=== PATIENT | male | born 1935 | race Caucasian/White ===

== ENCOUNTER 2018-03-07 10:41 | Emergency (ER) | payer MEDICARE ==
[2018-03-07 10:55] VITALS: RESP 18
[2018-03-07] MEDS ORDERED: LIDOCAINE 1% INJ 10MG/ML (20 ML MDV) SQ STA (11:56)
[2018-03-07] MEDS ORDERED: PENICILLIN G BENZATHINE 1,200,000 UNIT/2 ML SYRINGE IM STA (12:29)
--- NOTE | 2018-03-07 12:36 | ED ---
General Adult HPI - General Chief complaint: Skin/Abscess/Foreign Body Stated complaint: Insect Bite behind Rt ear Time Seen by Provider: 03/07/18 11:14 Source: patient, RN notes reviewed Mode of arrival: ambulatory Limitations: no limitations - History of Present Illness Initial comments: Patient's an 82-year-old male presented to the emergency room today with chief complaint of an abscess located behind the right ear. He does admit that started approximately a week ago. He states he did see the family doctor this past Saturday who did try to drain in the office. Some drainage came out. Since last few days he has had some drainage in the back of the family doctor was told it was worse as compared to the emergency room. Patient states he has been on antibiotics of Bactrim has been taking this. Admits to The pain locally. Does not drink. Denies any other complaints or symptoms. Patient denies any recent fever, chills, shortness of breath, chest pain, back pain, abdominal pain, nausea or vomiting, headaches or visual changes, or any other complaints. - Related Data Home Medications Medication Instructions Recorded Confirmed Amitriptyline HCl [Elavil] 20 mg PO BID 03/07/18 03/07/18 Bepreve Eye Drops 1 drop BOTH EYES DAILY 03/07/18 03/07/18 Edoxaban Tosylate [Savaysa] 30 mg PO HS 03/07/18 03/07/18 Isosorbide Mononitrate ER [Imdur] 30 mg PO DAILY 03/07/18 03/07/18 Metoprolol Succinate (ER) [Toprol 50 mg PO BID 03/07/18 03/07/18 Xl] Simvastatin [Zocor] 20 mg PO HS 03/07/18 03/07/18 Spironolactone-Hctz 25-25Mg 0.5 tab PO Q48H 03/07/18 03/07/18 [Aldactazide 25-25Mg] Sulfamethox-Tmp 800-160Mg [Bactrim 1 tab PO Q12HR 03/07/18 03/07/18 DS 800-160 mg] hydrALAZINE HCL [Apresoline] 50 mg PO BID 03/07/18 03/07/18 Allergies Allergy/AdvReac Type Severity Reaction Status Date / Time No Known Allergies Allergy Verified 03/07/18 11:13 Review of Systems ROS Statement: Those systems with pertinent positive or pertinent negative responses have been documented in the HPI. ROS Other: All systems not noted in ROS Statement are negative. Past Medical History Past Medical History: Coronary Artery Disease (CAD), Hyperlipidemia, Hypertension, Myocardial Infarction ([place]) Additional Past Medical History / Comment(s): cataracts removed History of Any Multi-Drug Resistant Organisms: None Reported Past Surgical History: Heart Catheterization Additional Past Surgical History / Comment(s): defib, cat removed with lens implant Past Psychological History: No Psychological Hx Reported Smoking Status: Never smoker Past Alcohol Use History: None Reported Past Drug Use History: None Reported General Exam - General Exam Comments Initial Comments: General: The patient is awake and alert, in no distress, and does not appear acutely ill. Eye: Pupils are equal, round and reactive to light, extra-ocular movements are intact. No nystagmus. There is normal conjunctiva bilaterally. No signs of icterus. Ears, nose, mouth and throat: There are moist mucous membranes and no oral lesions. Neck: The neck is supple, there is no tenderness or JVD. Musculoskeletal: Normal ROM, no tenderness. Strength 5/5. Sensation intact. Pulses equal bilaterally 2+. Neurological: A&O x 3. CN II-XII intact, There are no obvious motor or sensory deficits. Coordination appears grossly intact. Speech is normal. Skin: Abscess behind the right year measures approximately 2 cm across. Firm on induration. Psychiatric: Cooperative, appropriate mood & affect, normal judgment. Limitations: no limitations Course Vital Signs 03/07/18 10:50 Temperature 97.7 F Pulse Rate 79 Respiratory 18 Rate Blood Pressure 106/67 O2 Sat by Pulse 97 Oximetry Procedures - Procedures Initial comment: Procedure: Incision and drainage The skin overlying the abscess was prepped with Betadine, and anesthetized with 1% lidocaine without epinephrine. A #11 scalpel was then used to incise the abscess. Some purulent material was then extracted from the lesion. Wound culture obtained. Gauze dressing placed on top, The patient tolerated the procedure well. Medical Decision Making - Medical Decision Making Patient was seen by attending physician Dr. Wolfe. At this time patient will be discharged continued on Bactrim. The abscess was opened and drained here in the emergency room. Small bowel drainage. Options of admission were discussed. Patient states he would rather follow up outpatient. At this time advised continue Bactrim and asked culture is pending. Advised return if symptoms increase worsen. Advised following up next week. Patient states understanding. Disposition Clinical Impression: Abscess Disposition: HOME SELF-CARE Condition: Good Instructions: Abscess (ED) Additional Instructions: Please continue antibiotics as previously prescribed. Please use warm compresses to the area at least 4 times daily for 20 minutes at a time. Please return to emergency room if there is increased pain, swelling, redness, or fever or chills. Is patient prescribed a controlled substance at d/c from ED?: No Referrals: Aleksandra Machado MD [Primary Care Provider] - 1-2 days Time of Disposition: 12:35
[2018-03-07 13:10] VITALS: BP 115/70; PULSE 72; TEMP 98
== END 2018-03-07 13:10 | disposition home or self-care (01) ==
LOC: EC 10:41
DX: H60.01 Abscess of right external ear (principal); I25.10 Atherosclerotic heart disease of native coronary artery without angina pectoris; E78.5 Hyperlipidemia, unspecified; I10 Essential (primary) hypertension; I25.2 Old myocardial infarction; Z95.818 Presence of other cardiac implants and grafts; Z95.810 Presence of automatic (implantable) cardiac defibrillator; Z79.01 Long term (current) use of anticoagulants; Z79.899 Other long term (current) drug therapy; W57.XXXA Bitten or stung by nonvenomous insect and other nonvenomous arthropods, initial encounter
CPT/HCPCS: 87070; 87205; 87077; 87186; 99283; 10060; 96372; J0561; J2001

== ENCOUNTER 2018-03-17 14:32 | Inpatient (IN) | payer MEDICARE ==
[2018-03-17 15:43] LABS: Appearance,Urine Clear (Clear); Bilirubin,Urine Negative (Negative); Blood,Urine Negative (Negative); Color,Urine Dark Yellow; Glucose,Urine (UA) Negative (Negative); Ketones,Urine Negative (Negative); Leukocyte Esterase,Urine Negative (Negative); Nitrite,Urine Negative (Negative); PH, Urine 5.5 (5.0-8.0); Protein,Urine Trace (Negative); Specific Gravity,Urine 1.023 (1.001-1.035); Urobilinogen,Urine <2.0 mg/dL (<2.0)
[2018-03-17 15:59] LABS: Basophils % (A) 0 %; Eosinophils # (A) 0.2 k/uL (0-0.7); Eosinophils % (A) 2 %; HCT 44.2 % (39.0-53.0); HGB 14.8 gm/dL (13.0-17.5); Lymphocytes # (A) 0.7 k/uL (1.0-4.8); Lymphocytes % (A) 8 %; MCH 29.9 pg (25.0-35.0); MCHC 33.4 g/dL (31.0-37.0); MCV 89.5 fL (80.0-100.0); Mean Platelet Volume 7.9; Monocytes # (A) 0.7 k/uL (0-1.0); Monocytes % (A) 8 %; Neutrophils % (A) 80 %; Platelet Count 188 k/uL (150-450); RBC 4.94 m/uL (4.30-5.90); RDW 13.4 % (11.5-15.5); WBC 8.8 k/uL (3.8-10.6)
[2018-03-17 16:06] LABS: Albumin 3.8 g/dL (3.5-5.0); Calcium 8.9 mg/dL (8.4-10.2); Potassium 5.2 mmol/L (3.5-5.1); Total Bilirubin 0.6 mg/dL (0.2-1.3); Total Protein 6.6 g/dL (6.3-8.2)
[2018-03-17] MEDS ORDERED: SODIUM CHLORIDE 0.9% 500 ML IV ONE ×3 (17:09→21:14)
--- NOTE | 2018-03-17 17:14 | ED ---
General Adult HPI - General Chief complaint: Weakness Stated complaint: Weakness Time Seen by Provider: 03/17/18 17:00 Source: patient, RN notes reviewed, old records reviewed Mode of arrival: wheelchair Limitations: no limitations - History of Present Illness Initial comments: 82-year-old male presenting with generalized weakness and diarrhea. Patient states that his diarrhea has been present for the past 3-4 days. Is also had some mild nausea, no significant vomiting. He's had subjective chills with no measured fever. Patient was previously on antibiotics for an abscess behind his right ear. He stopped these antibiotics secondary to his diarrhea. He is also had some myalgias. Denies any significant abdominal pain. Denies chest pain or shortness of breath. Denies cough. - Related Data Home Medications Medication Instructions Recorded Confirmed Bepreve Eye Drops 1 drop BOTH EYES DAILY 03/07/18 03/17/18 Edoxaban Tosylate [Savaysa] 30 mg PO HS 03/07/18 03/17/18 Isosorbide Mononitrate ER [Imdur] 30 mg PO DAILY 03/07/18 03/17/18 Metoprolol Succinate (ER) [Toprol 50 mg PO BID 03/07/18 03/17/18 Xl] Simvastatin [Zocor] 20 mg PO HS 03/07/18 03/17/18 Spironolactone-Hctz 25-25Mg 0.5 tab PO DAILY 03/07/18 03/17/18 [Aldactazide 25-25Mg] hydrALAZINE HCL [Apresoline] 50 mg PO BID 03/07/18 03/17/18 Enalapril [Vasotec] 20 mg PO BID 03/17/18 03/17/18 Allergies Allergy/AdvReac Type Severity Reaction Status Date / Time No Known Allergies Allergy Verified 03/17/18 17:11 Review of Systems ROS Statement: Those systems with pertinent positive or pertinent negative responses have been documented in the HPI. ROS Other: All systems not noted in ROS Statement are negative. Past Medical History Past Medical History: Coronary Artery Disease (CAD), Hyperlipidemia, Hypertension, Myocardial Infarction ([place]) Additional Past Medical History / Comment(s): cataracts removed History of Any Multi-Drug Resistant Organisms: MRSA Date of last positivie culture/infection: 03/07/18 MDRO Source:: EAR Past Surgical History: Heart Catheterization Additional Past Surgical History / Comment(s): defib, cat removed with lens implant Past Psychological History: No Psychological Hx Reported Smoking Status: Never smoker Past Alcohol Use History: None Reported Past Drug Use History: None Reported General Exam Limitations: no limitations General appearance: alert, in no apparent distress Head exam: Present: atraumatic, normocephalic Eye exam: Present: normal appearance, PERRL ENT exam: Present: mucous membranes dry Neck exam: Present: normal inspection. Absent: tenderness, meningismus Respiratory exam: Present: normal lung sounds bilaterally. Absent: respiratory distress, wheezes Cardiovascular Exam: Present: regular rate, normal rhythm GI/Abdominal exam: Present: soft, tenderness (Very mild epigastric tenderness). Absent: distended, guarding, rebound, rigid Extremities exam: Present: normal inspection, normal capillary refill. Absent: pedal edema Neurological exam: Present: alert, oriented X3, CN II-XII intact. Absent: motor sensory deficit Psychiatric exam: Present: normal affect, normal mood Skin exam: Present: warm, dry, intact. Absent: cyanosis, diaphoretic Course Vital Signs 03/17/18 03/17/18 03/17/18 15:16 17:25 18:25 Temperature 99 F Pulse Rate 79 94 70 Respiratory 18 16 16 Rate Blood Pressure 105/67 102/68 88/50 O2 Sat by Pulse 98 97 97 Oximetry 03/17/18 19:02 Temperature 100.4 F H Pulse Rate 98 Respiratory 18 Rate Blood Pressure 99/54 O2 Sat by Pulse 96 Oximetry EKG Findings - EKG Comments: EKG Findings:: EKG: Ventricular pacemaker, rate of 89, QRS duration 120, QTC 428 Medical Decision Making - Medical Decision Making 82-year-old male with generalized weakness and diarrhea after recent antibiotics. Laboratory studies reveal normal CBC, mildly elevated lipase at 74 , creatinine 1.9 which is worse from baseline. Ultrasound is obtained for elevated lipase, this negative for gallstones or obstruction. KUB is negative for obstruction or free air. Patient given IV hydration, blood pressure remains low, he does develop low-grade temperature and emergency department at 100.4. Blood cultures are obtained and are pending given his recent MRSA infection behind his right ear. He will be admitted for further IV hydration. C. difficile toxin is pending. Case discussed with Dr. Ward, will accept admission - Lab Data Result diagrams: 03/17/18 15:40 03/17/18 15:40 Lab Results 03/17/18 03/17/18 03/17/18 Range/Units 15:26 15:40 15:40 WBC 8.8 (3.8-10.6) k/uL RBC 4.94 (4.30-5.90) m/uL Hgb 14.8 (13.0-17.5) gm/dL Hct 44.2 (39.0-53.0) % MCV 89.5 (80.0-100.0) fL MCH 29.9 (25.0-35.0) pg MCHC 33.4 (31.0-37.0) g/dL RDW 13.4 (11.5-15.5) % Plt Count 188 (150-450) k/uL Neutrophils % 80 % Lymphocytes % 8 % Monocytes % 8 % Eosinophils % 2 % Basophils % 0 % Neutrophils # 7.0 (1.3-7.7) k/uL Lymphocytes # 0.7 L (1.0-4.8) k/uL Monocytes # 0.7 (0-1.0) k/uL Eosinophils # 0.2 (0-0.7) k/uL Basophils # 0.0 (0-0.2) k/uL Sodium 132 L (137-145) mmol/L Potassium 5.2 H (3.5-5.1) mmol/L Chloride 97 L (98-107) mmol/L Carbon Dioxide 22 (22-30) mmol/L Anion Gap 13 mmol/L BUN 45 H (9-20) mg/dL Creatinine 1.90 H (0.66-1.25) mg/dL Est GFR (CKD-EPI)AfAm 37 (>60 ml/min/1.73 sqM) Est GFR (CKD-EPI)NonAf 32 (>60 ml/min/1.73 sqM) Glucose 99 (74-99) mg/dL Calcium 8.9 (8.4-10.2) mg/dL Total Bilirubin 0.6 (0.2-1.3) mg/dL AST 47 (17-59) U/L ALT 41 (21-72) U/L Alkaline Phosphatase 73 (38-126) U/L Total Protein 6.6 (6.3-8.2) g/dL Albumin 3.8 (3.5-5.0) g/dL Amylase 183 H (30-110) U/L Lipase 784 H (23-300) U/L Urine Color Dark Yellow Urine Appearance Clear (Clear) Urine pH 5.5 (5.0-8.0) Ur Specific [place] 1.023 (1.001-1.035) Urine Protein Trace H (Negative) Urine Glucose (UA) Negative (Negative) Urine Ketones Negative (Negative) Urine Blood Negative (Negative) Urine Nitrite Negative (Negative) Urine Bilirubin Negative (Negative) Urine Urobilinogen <2.0 (<2.0) mg/dL Ur Leukocyte Esterase Negative (Negative) Disposition Clinical Impression: Dehydration, Diarrhea, DONELL (acute kidney injury) Disposition: [facility] Condition: Stable Is patient prescribed a controlled substance at d/c from ED?: No Referrals: Aleksandra Machado MD [Primary Care Provider] - 1-2 days Decision to Admit Reason: Admit from EC Decision Date: 03/17/18 Decision Time: 19:57
[2018-03-17] MEDS: SODIUM CHLORIDE 0.9% 1,000 ML IV SCH (17:29)
--- NOTE | 2018-03-17 18:14 | XR ---
EXAMINATION TYPE: XR KUB DATE OF EXAM: 03/17/2018 COMPARISON: NONE HISTORY: Pain TECHNIQUE: 2 views FINDINGS: There is no sign of intestinal obstruction or pneumoperitoneum. Fecal pattern is normal. Sp ondylotic changes in the lumbar spine. There are no pathologic calcifications over the kidneys. Lung bases are clear. IMPRESSION: Nonacute abdomen.
--- NOTE | 2018-03-17 18:44 | US ---
EXAMINATION TYPE: US gallbladder DATE OF EXAM: 03/17/2018 COMPARISON: NONE CLINICAL HISTORY: Pain. Pain.Exam limitations due to barrel chested and body habitus. EXAM MEASUREMENTS: Liver Length: 15.6 cm Gallbladder Wall: 0.30 cm CBD: 0.24 cm Right Kidney: 9.2 x 4.6 x 4.6 cm Pancreas: Obscured by bowel gas Liver: wnl Gallbladder: No stones seen Evidence for sonographic Baez's sign: No CBD: wnl Right Kidney: No hydronephrosis or masses seen IMPRESSION: Negative right upper quadrant abdominal sonogram. No gallstones or dilated ducts.
[2018-03-17] MEDS ORDERED: ACETAMINOPHEN TAB 500 MG TAB PO STA (19:03)
[2018-03-17] MEDS ORDERED: ONDANSETRON 4 MG/2 ML VIAL IVP PRN (19:53)
[2018-03-17] MEDS ORDERED: ACETAMINOPHEN TAB 325 MG TAB PO PRN (19:53)
[2018-03-17] MEDS ORDERED: NALOXONE 0.4 MG/ML 1 ML VIAL IV PRN (19:53)
[2018-03-17] MEDS: METOPROLOL SUCCINATE (ER) 50 MG TAB.ER.24H PO SCH (23:00)
[2018-03-18] MEDS: SODIUM CHLORIDE 0.9% 1,000 ML IV SCH (07:03)
[2018-03-18 09:09] LABS: Basophils % (A) 0 %; Eosinophils # (A) 0.2 k/uL (0-0.7); Eosinophils % (A) 2 %; HCT 39.9 % (39.0-53.0); HGB 13.1 gm/dL (13.0-17.5); Lymphocytes # (A) 0.7 k/uL (1.0-4.8); Lymphocytes % (A) 9 %; MCH 29.7 pg (25.0-35.0); MCHC 32.9 g/dL (31.0-37.0); MCV 90.3 fL (80.0-100.0); Mean Platelet Volume 8.2; Monocytes # (A) 0.6 k/uL (0-1.0); Monocytes % (A) 7 %; Neutrophils # (A) 6.2 k/uL (1.3-7.7); Neutrophils % (A) 79 %; Platelet Count 176 k/uL (150-450); RBC 4.41 m/uL (4.30-5.90); RDW 13.7 % (11.5-15.5); WBC 7.9 k/uL (3.8-10.6)
[2018-03-18] MEDS: METOPROLOL SUCCINATE (ER) 50 MG TAB.ER.24H PO SCH ×2 (09:12→20:55)
[2018-03-18 09:55] LABS: Albumin 3.2 g/dL (3.5-5.0); Calcium 8.6 mg/dL (8.4-10.2); Potassium 4.9 mmol/L (3.5-5.1); Total Bilirubin 0.6 mg/dL (0.2-1.3); Total Protein 5.9 g/dL (6.3-8.2)
[2018-03-18 11:37] LABS: Troponin I 0.012 ng/mL (0.000-0.034)
--- NOTE | 2018-03-18 11:58 | P.HPIM ---
History of Present Illness H&P Date: 03/18/18 Chief Complaint: dehydration, diarrhea This is an 82-year-old patient of Dr. Machado who presented to the ER today after having 3-4 days of diarrhea and myalgias. Patient states that about a week and a half ago he was getting treated with Bactrim for MRSA on his right ear by his primary care provider. Patient states he had 3 days left of the antibiotic but stopped due to the diarrhea. Patient states he has a significant history for coronary artery disease, hyperlipidemia, hypertension, and myocardial infarction. Patient also reports that he has a defibrillator and pacemaker. Patient is on the medication Savaysa, in which he states he takes for an arrhythmia that was diagnosed a year ago. Patient states that he is followed by cardiology, Dr. Hurst. Upon admission Bun was 45, Creatinine 1.90, potassium was 5.2, amylase 183 and lipase 784. Stool was negative for C. diff. Ultrasound of gallbladder was negative for gallstones or dilated ducts. KUB x-ray showed a nonacute abdomen. EKG on admission showed ventricular paced. Blood cultures have been ordered. Patient also reports that he feels his defibrillator has been discharging over the past couple days. Cardiac profile, troponins and EKG have been ordered. Patient also ordered for telemetry and admission to [facility] care. Cardiology has been consulted. Repeat lipase level 983. Orders placed for NPO. Patient denies chest pain or shortness of breath. Review of Systems Please see HPI otherwise unremarkable Past Medical History Past Medical History: Coronary Artery Disease (CAD), Hyperlipidemia, Hypertension, Myocardial Infarction ([place]) Additional Past Medical History / Comment(s): cataracts removed History of Any Multi-Drug Resistant Organisms: MRSA Date of last positivie culture/infection: 03/07/18 MDRO Source:: EAR Past Surgical History: Heart Catheterization Additional Past Surgical History / Comment(s): defib, cat removed with lens implant Past Psychological History: No Psychological Hx Reported Smoking Status: Never smoker Past Alcohol Use History: None Reported Past Drug Use History: None Reported Medications and Allergies Home Medications Medication Instructions Recorded Confirmed Type Bepreve Eye Drops 1 drop BOTH EYES DAILY 03/07/18 03/17/18 History Edoxaban Tosylate [Savaysa] 30 mg PO HS 03/07/18 03/17/18 History Isosorbide Mononitrate ER [Imdur] 30 mg PO DAILY 03/07/18 03/17/18 History Metoprolol Succinate (ER) [Toprol 50 mg PO BID 03/07/18 03/17/18 History Xl] Simvastatin [Zocor] 20 mg PO HS 03/07/18 03/17/18 History Spironolactone-Hctz 25-25Mg 0.5 tab PO DAILY 03/07/18 03/17/18 History [Aldactazide 25-25Mg] hydrALAZINE HCL [Apresoline] 50 mg PO BID 03/07/18 03/17/18 History Enalapril [Vasotec] 20 mg PO BID 03/17/18 03/17/18 History Allergies Allergy/AdvReac Type Severity Reaction Status Date / Time No Known Allergies Allergy Verified 03/17/18 17:11 Physical Exam Vitals: Vital Signs Temp Pulse Resp BP Pulse Ox 03/18/18 06:56 100.6 F H 90 18 126/77 96 03/18/18 05:08 90 18 95/55 98 03/18/18 02:43 18 03/18/18 01:02 98.8 F 93 18 90/58 98 03/17/18 23:00 98.5 F 80 18 97/54 96 03/17/18 21:35 75 18 101/62 96 03/17/18 21:11 99.0 F 94 18 87/54 98 03/17/18 20:04 70 18 96/54 98 03/17/18 19:02 100.4 F H 98 18 99/54 96 03/17/18 18:25 70 16 88/50 97 03/17/18 17:25 94 16 102/68 97 03/17/18 15:16 99 F 79 18 105/67 98 Intake and Output 03/17/18 03/18/18 03/18/18 22:59 06:59 14:59 Other: Weight 88.451 kg Head normocephalic Neck supple Lungs clear to auscultation bilaterally no wheezing or crackles Heart regular rate and rhythm S1-S2, no rub or gallop Abdomen is soft and mild tenderness. nondistended positive bowel sounds no hepatosplenomegaly Extremities no edema. Integumentary Back of right ear dime size non draining papule. no other rashes or skin impairments Neuro alert and orientated to 3 Results CBC & Chem 7: 03/18/18 08:55 03/18/18 08:55 Labs: Abnormal Lab Results - Last 24 Hours (Table) 03/17/18 03/17/18 03/17/18 Range/Units 15:26 15:40 15:40 Lymphocytes # 0.7 L (1.0-4.8) k/uL Sodium 132 L (137-145) mmol/L Potassium 5.2 H (3.5-5.1) mmol/L Chloride 97 L (98-107) mmol/L Carbon Dioxide (22-30) mmol/L BUN 45 H (9-20) mg/dL Creatinine 1.90 H (0.66-1.25) mg/dL Total Protein (6.3-8.2) g/dL Albumin (3.5-5.0) g/dL Amylase 183 H (30-110) U/L Lipase 784 H (23-300) U/L Urine Protein Trace H (Negative) 03/18/18 03/18/18 Range/Units 08:55 08:55 Lymphocytes # 0.7 L (1.0-4.8) k/uL Sodium 134 L (137-145) mmol/L Potassium (3.5-5.1) mmol/L Chloride (98-107) mmol/L Carbon Dioxide 19 L (22-30) mmol/L BUN 40 H (9-20) mg/dL Creatinine 1.50 H (0.66-1.25) mg/dL Total Protein 5.9 L (6.3-8.2) g/dL Albumin 3.2 L (3.5-5.0) g/dL Amylase (30-110) U/L Lipase 983 H (23-300) U/L Urine Protein (Negative) Assessment and Plan Assessment: 1. Acute kidney injury due to dehydration and possible use of Bactrim antibiotic. Patient received 1.5 L in ER and is currently on normal saline at 75. Potassium down to 4.9, BUN 40 and creatinine 1.50. 2. Diarrhea- stool negative for C-diff 3. Acute pancreatitis. Patient made nothing by mouth except for meds at this time, normal saline currently at 75. Triglyceride level ordered. Repeat Amylase and lipase ordered for AM. 4. Hypotension- patient received fluid boluses in ER. Home blood Pressure medication currently on hold. Parameters around Metroprolol have been ordered. 5. Defibrillator/pacemaker- patient reports that he feels that defibrillator has been discharging. Cardiology consult has been ordered. Troponins, cardiac profile and EKG have also has been ordered. Patient ordered for selective care. 6. History of coronary artery disease- continue Lipitor 7. History of Proximal atrial fibrillation- continue Savaysa 8. Right ear abscess- patient previously treated with Bactrim per Primary Care Provider. Patient states he stopped antibiotic 3 days early due to diarrhea. Blood Culture has been ordered. Patient having low grad temps 100.6. DVT prophylaxis Savaysa. GI prophylaxis Pepcid Time with Patient: Greater than 30 (Greater than 60% of the total time spent in counseling and coordination of care. I performed an examination of the patient and discussed their management with the Nurse Practitioner. I have reviewed the Nurse Practitioner's notes and agree with the documented findings and plan of care)
[2018-03-18 12:50] LABS: Creatine Kinase MB 2.4 ng/mL (0.0-2.4)
[2018-03-18] MEDS ORDERED: VANCOMYCIN IV PER PHARMACY 1 EACH MISC MISCELLANE PRN (13:01)
[2018-03-18] MEDS ORDERED: VANCOMYCIN 1,750 MG in SODIUM CHLORIDE 0.9% 250 ML IVPB ONE (14:00)
--- NOTE | 2018-03-18 14:37 | CONS ---
CONSULTATION CHIEF COMPLAINT: Fatigue, tiredness and diarrhea. This is an 82-year-old gentleman with history of ischemic cardiomyopathy status post AICD, coronary artery disease, hypertension, dyslipidemia, who presents to hospital with 3-4 days of diarrhea and myalgia. He initially started off with MRSA of his right ear and was treated with Bactrim and subsequently developed diarrhea. The patient complains of palpitations, but does not have any chest pain, difficulty in breathing, or syncope. His predominant symptom is that he is just feeling fatigued and tired. On his initial presentation, blood pressure was low and this has improved. Cardiology has been consulted because they thought that his defibrillator may have gone off, but asking the patient, he is not complaining that the defibrillator went off, it is that he had palpitations. PAST MEDICAL HISTORY: Significant for coronary artery disease, ischemic cardiomyopathy, hypertension, dyslipidemia. PAST SURGICAL HISTORY: Significant for cataract removal, defibrillator. SOCIAL HISTORY: Negative for smoking. There is no history of EtOH abuse or drug abuse. MEDICATIONS: At home included Savaysa, Imdur, Toprol-XL 50 b.i.d., Zocor 20 daily, Aldactazide, Apresoline, and Vasotec. ALLERGIES: There are no known drug allergies. FAMILY HISTORY: Negative for premature coronary artery disease. REVIEW OF SYSTEMS: HEENT is significant for recent infection. CARDIAC: As described above. RESPIRATORY: As described above. GI: As described above. GENITOURINARY: Negative. ALLERGY/IMMUNOLOGY: Negative. SKIN: Negative. MUSCULOSKELETAL: Significant for arthritis and arthralgias. PSYCHOSOCIAL: Negative. ENDOCRINE: Negative. DERM: Negative. CONSTITUTIONAL: Significant for fatigue, tiredness, not feeling well. The rest of the system review is not relevant. EKG shows paced rhythm. LABS: Show that the hemoglobin is 13.1, platelet count is 176, potassium is 4.9, BUN and creatinine are elevated at 40 and 1.5. AST, ALT are within normal limits. Stool C diff is negative. ASSESSMENT: 1. Ischemic cardiomyopathy, status post AICD. 2. History of paroxysmal atrial fibrillation. 3. Diarrhea with hypotension. 4. Dyslipidemia. PLAN: Patient will resume Lipitor, Toprol-XL, Savaysa and the patient is being treated with intravenous vancomycin. If the patient does not need cardiac workup. If they have any concerns about cardiac arrhythmia, I may get the AICD checked here, but right now I do not see the need for it. [id number] / IJN: [id number] /
[2018-03-18] MEDS ORDERED: SODIUM CHLORIDE 0.9% 500 ML IV ONE (14:39)
[2018-03-18 14:52] VITALS: BMI 29.6
[2018-03-18 15:33] LABS: Creatine Kinase 125 U/L (55-170)
[2018-03-18 15:46] LABS: Creatine Kinase MB 2.3 ng/mL (0.0-2.4); Troponin I <0.012 ng/mL (0.000-0.034)
[2018-03-18] MEDS: ATORVASTATIN 10 MG TAB PO SCH (20:11)
[2018-03-18] MEDS: EDOXABAN TOSYLATE 30 MG TABLET PO SCH ×2 (20:55→21:39)
[2018-03-18 22:02] LABS: Creatine Kinase MB 2.1 ng/mL (0.0-2.4)
[2018-03-18 22:09] LABS: Troponin I 0.052 ng/mL (0.000-0.034)
[2018-03-19 02:46] LABS: Basophils % (A) 0 %; Eosinophils # (A) 0.1 k/uL (0-0.7); Eosinophils % (A) 1 %; HCT 36.6 % (39.0-53.0); HGB 12.3 gm/dL (13.0-17.5); Lymphocytes % (A) 13 %; MCH 30.1 pg (25.0-35.0); MCHC 33.7 g/dL (31.0-37.0); MCV 89.1 fL (80.0-100.0); Mean Platelet Volume 7.6; Monocytes # (A) 0.6 k/uL (0-1.0); Monocytes % (A) 8 %; Neutrophils # (A) 5.9 k/uL (1.3-7.7); Neutrophils % (A) 74 %; Platelet Count 181 k/uL (150-450); RBC 4.11 m/uL (4.30-5.90); RDW 13.6 % (11.5-15.5); WBC 7.9 k/uL (3.8-10.6)
[2018-03-19 02:53] LABS: Albumin 2.8 g/dL (3.5-5.0); Potassium 4.6 mmol/L (3.5-5.1); Total Bilirubin 0.5 mg/dL (0.2-1.3); Total Protein 5.2 g/dL (6.3-8.2)
--- NOTE | 2018-03-19 11:05 | P.CONS ---
History of Present Illness - Reason for Consult Consult date: 03/19/18 pancreatitis Requesting physician: Jo Ann Ward - History of Present Illness 82 y/o male PMH arrhythmia and BI-Vi AICD maintained on Savaysa admitted with diarrhea x 1 week weakness dehydration. Consult requested for pancreatitis. He reports possible bug bite behind right ear 1 month ago causing abscess; lanced twice; cultures MRSA and has been on antibiotic therapy. Admission pancreatic enzymes were elevated despite not having abdominal pain. No history of pancreatitis. No history of pancreatic surgeries or ETOH abuse. Besides antibiotics over the last month no other medication changes. Diarrhea has improved; c diff negative. Admission lipase 784 presently 999. Amylase 183-192. LFTS normal. US abdomen negative. WBC 7.9-8.8. HGB 12.3-14.8. Triglycerides 181. BUN 45 now 30. Creatinine 1.9. now 1.2. Review of Systems Constitutional: Denies fever, chills, sweats, weight gain, or loss. Admitted with weakness. HEENT: Negative for migraines, blurred vision or loss, earaches, drainage, tinnitus, oral mucosal lesions, dysphagia, or odynophagia. Cardiac: Denies chest pain, history of arrhythmias, denies palpitation. Respiratory: Negative for shortness of breath, hemoptysis, cough, or sputum production. Gastrointestinal: See HPI for pertinent findings. Genitourinary: Negative for hematuria, urgency, frequency, polyuria, dysuria, or penile discharge. Musculoskeletal: Negative for muscle aches, swelling, arthritis, and arthralgias. Neurologic: Negative for stroke or TIA. Endocrine: Negative for thyroid problems. Skin: Negative for rash or itching. Psychiatric: Negative history for depression and anxiety Past Medical History Past Medical History: Atrial Flutter, Coronary Artery Disease (CAD), Heart Failure, CVA/TIA, Hyperlipidemia, Hypertension, Myocardial Infarction ([place]) Additional Past Medical History / Comment(s): Recent R ear (behind ear) abscess treated with ABX but pt stopped taking d/t diarrhea (Cdiff negative), Aflutter/ SVT, ischemic cardiomyopathy, silent [place] per tests (inferior wall), TIA in 1999. Last Myocardial Infarction Date:: unkn History of Any Multi-Drug Resistant Organisms: MRSA Year Discovered:: 03/07/18 MDRO Source:: EAR Past Surgical History: AICD, Heart Catheterization Additional Past Surgical History / Comment(s): 2006 Biventricular AICD with gen change in 2011, ICD testings, 2006 cardiac cath-unable to perform intervention per pt, mid back cyst removed. Past Anesthesia/Blood Transfusion Reactions: No Reported Reaction Type of Cardiac Device: AICD Device Placement Date:: 2006 with gen change in 2011 Smoking Status: Never smoker - Past Family History Father Family Medical History: Myocardial Infarction ([place]) Additional Family Medical History / Comment(s): Father at the age of 57yrs from a [place] Mother Family Medical History: Congestive Heart Failure (CHF) Additional Family Medical History / Comment(s): Mother of CHF at the age of 94yrs. Medications and Allergies Home Medications Medication Instructions Recorded Confirmed Type Bepreve Eye Drops 1 drop BOTH EYES DAILY 03/07/18 03/17/18 History Edoxaban Tosylate [Savaysa] 30 mg PO HS 03/07/18 03/17/18 History Isosorbide Mononitrate ER [Imdur] 30 mg PO DAILY 03/07/18 03/17/18 History Metoprolol Succinate (ER) [Toprol 50 mg PO BID 03/07/18 03/17/18 History Xl] Simvastatin [Zocor] 20 mg PO HS 03/07/18 03/17/18 History Spironolactone-Hctz 25-25Mg 0.5 tab PO DAILY 03/07/18 03/17/18 History [Aldactazide 25-25Mg] hydrALAZINE HCL [Apresoline] 50 mg PO BID 03/07/18 03/17/18 History Enalapril [Vasotec] 20 mg PO BID 03/17/18 03/17/18 History Allergies Allergy/AdvReac Type Severity Reaction Status Date / Time No Known Allergies Allergy Verified 03/17/18 17:11 Physical Exam Vitals: Vital Signs Temp Pulse Pulse Resp BP BP Pulse Ox 03/19/18 00:00 99.5 F 107 H 18 126/71 93 L 03/18/18 20:00 99.7 F H 112 H 22 129/79 96 03/18/18 15:00 98.4 F 96 18 119/61 98 03/18/18 14:45 82 18 104/68 98 03/18/18 14:18 80 18 80/47 98 03/18/18 12:41 98.0 F 103 H 18 107/63 97 Intake and Output 03/18/18 03/19/18 03/19/18 22:59 06:59 14:59 Output Total 300 Balance -300 Output: Urine 300 Other: # Voids 1 1 - Constitutional General appearance: average body habitus - EENT ENT: hard of hearing - Neck Neck: normal ROM - Respiratory Respiratory: bilateral: CTA - Cardiovascular Heart sounds: normal: S1, S2 - Gastrointestinal nontender General gastrointestinal: soft Results CBC & Chem 7: 03/19/18 02:10 03/19/18 02:10 Labs: Abnormal Lab Results - Last 24 Hours (Table) 03/18/18 03/18/18 03/19/18 Range/Units 14:59 20:42 02:10 RBC 4.11 L (4.30-5.90) m/uL Hgb 12.3 L (13.0-17.5) gm/dL Hct 36.6 L (39.0-53.0) % Sodium (137-145) mmol/L Carbon Dioxide (22-30) mmol/L BUN (9-20) mg/dL Calcium (8.4-10.2) mg/dL AST (17-59) U/L Troponin I 0.052 H* (0.000-0.034) ng/mL Total Protein (6.3-8.2) g/dL Albumin (3.5-5.0) g/dL Triglycerides 181 H (<150) mg/dL Amylase (30-110) U/L Lipase (23-300) U/L 03/19/18 Range/Units 02:10 RBC (4.30-5.90) m/uL Hgb (13.0-17.5) gm/dL Hct (39.0-53.0) % Sodium 132 L (137-145) mmol/L Carbon Dioxide 19 L (22-30) mmol/L BUN 30 H (9-20) mg/dL Calcium 8.0 L (8.4-10.2) mg/dL AST 70 H (17-59) U/L Troponin I (0.000-0.034) ng/mL Total Protein 5.2 L (6.3-8.2) g/dL Albumin 2.8 L (3.5-5.0) g/dL Triglycerides (<150) mg/dL Amylase 192 H (30-110) U/L Lipase 999 H (23-300) U/L Microbiology - Last 24 Hours (Table) 03/17/18 19:33 Blood Culture - Preliminary Blood No Growth after 24 hours US - abdomen: report reviewed (Dr. Mallory) Assessment and Plan Assessment: Impression: 1. Acute dehydration acute kidney injury secondary to diarrhea suspect antibiotic related improved. 2. Elevated lipase amylase without abdominal pain atypical for pancreatitis but cannot be excluded underlying neoplasm cannot be excluded; etiology unclear. Plan: 1. CT abdomen. CA 19-9. SHERYL/IgG4 subclass evaluate for autoimmune pathology. 2. Diet as tolerated patient asymptomatic. 3. Pancreatic enzymes in am. Will follow with you. Thank you for this kind referral and the opportunity to participate in the care of your patient. This consultation was discussed with Dr. Mallory. The impression and plan of care have been directed as dictated.
[2018-03-19] MEDS: METOPROLOL SUCCINATE (ER) 50 MG TAB.ER.24H PO SCH ×2 (11:25→20:26)
[2018-03-19] MEDS: BEPREVE EYE BOTH EYES SCH (11:25)
[2018-03-19] MEDS: FAMOTIDINE 20 MG TAB PO SCH (11:25)
[2018-03-19] MEDS: VANCOMYCIN 1,500 MG in SODIUM CHLORIDE 0.9% 250 ML IVPB SCH (11:25)
[2018-03-19] MEDS: SODIUM CHLORIDE 0.9% 1,000 ML IV SCH ×3 (11:25→20:27)
--- NOTE | 2018-03-19 12:07 | P.PN ---
Subjective Progress Note Date: 03/19/18 This is an 82-year-old patient of Dr. Machado who presented to the ER today after having 3-4 days of diarrhea and myalgias. Patient states that about a week and a half ago he was getting treated with Bactrim for MRSA on his right ear by his primary care provider. Patient states he had 3 days left of the antibiotic but stopped due to the diarrhea. Patient states he has a significant history for coronary artery disease, hyperlipidemia, hypertension, and myocardial infarction. Patient also reports that he has a defibrillator and pacemaker. Patient is on the medication Savaysa, in which he states he takes for an arrhythmia that was diagnosed a year ago. Patient states that he is followed by cardiology, Dr. Hurst. Upon admission Bun was 45, Creatinine 1.90, potassium was 5.2, amylase 183 and lipase 784. Stool was negative for C. diff. Ultrasound of gallbladder was negative for gallstones or dilated ducts. KUB x-ray showed a nonacute abdomen. EKG on admission showed ventricular paced. Blood cultures have been ordered. Patient was seen in consultation yesterday by Dr. Alanis, the original consultation was requested because of possible AICD discharge. At the time of the examination in consultation by Dr. Alanis, patient states that he felt palpitations but no episodes of AICD discharge for shocking experience. The pressure this morning 100/60 with a heart rate in the 70s, 94% on room air. White blood cell count 7.9, hemoglobin 12.3, platelet count 181. Sodium 132, potassium 4.6, BUN 30, creatinine 1.2. Amylase 192 and lipase 999. C. diff negative this time we will just continue to monitor the patient, Objective - Vital Signs Vital signs: Vital Signs Temp 98 F 03/19/18 11:45 Pulse 78 03/19/18 11:45 Resp 18 03/19/18 11:45 BP 100/56 03/19/18 11:45 Pulse Ox 94 L 03/19/18 11:45 Intake & Output 03/18/18 03/19/18 03/19/18 18:59 06:59 18:59 Output Total 300 Balance -300 Weight 88.451 kg Output: Urine 300 Other: # Voids 1 - Exam PHYSICAL EXAMINATION: GENERAL: 82-year-old gentleman in no acute distress at the time of my examination HEENT: Head is atraumatic, normocephalic. Pupils equal, round. Sclera anicteric. Conjunctiva are clear. Mucous membranes of the mouth are moist. Neck is supple. There is no elevated jugular venous pressure.] bruit is heard. HEART EXAMINATION: Heart S1, S2 normal. No murmur or gallop heard. CHEST EXAMINATION: Lungs are clear to auscultation and precussion. No chest wall tenderness is noted on palpation or with deep breathing. ABDOMEN: Soft, nontender. Bowel sounds are heard. No organomegaly noted. EXTREMITIES: 2+ peripheral pulses with no evidence of peripheral edema and no calf tenderness noted. NEUROLOGIC patient is awake, alert and oriented ?-3. . - Labs CBC & Chem 7: 03/19/18 02:10 03/19/18 02:10 Labs: Abnormal Lab Results - Last 24 Hours (Table) 03/18/18 03/18/18 03/19/18 Range/Units 14:59 20:42 02:10 RBC 4.11 L (4.30-5.90) m/uL Hgb 12.3 L (13.0-17.5) gm/dL Hct 36.6 L (39.0-53.0) % Sodium (137-145) mmol/L Carbon Dioxide (22-30) mmol/L BUN (9-20) mg/dL Calcium (8.4-10.2) mg/dL AST (17-59) U/L Troponin I 0.052 H* (0.000-0.034) ng/mL Total Protein (6.3-8.2) g/dL Albumin (3.5-5.0) g/dL Triglycerides 181 H (<150) mg/dL Amylase (30-110) U/L Lipase (23-300) U/L 03/19/18 Range/Units 02:10 RBC (4.30-5.90) m/uL Hgb (13.0-17.5) gm/dL Hct (39.0-53.0) % Sodium 132 L (137-145) mmol/L Carbon Dioxide 19 L (22-30) mmol/L BUN 30 H (9-20) mg/dL Calcium 8.0 L (8.4-10.2) mg/dL AST 70 H (17-59) U/L Troponin I (0.000-0.034) ng/mL Total Protein 5.2 L (6.3-8.2) g/dL Albumin 2.8 L (3.5-5.0) g/dL Triglycerides (<150) mg/dL Amylase 192 H (30-110) U/L Lipase 999 H (23-300) U/L Microbiology - Last 24 Hours (Table) 03/17/18 19:33 Blood Culture - Preliminary Blood No Growth after 24 hours Assessment and Plan Plan: Assessment and plan 1. Acute kidney injury due to dehydration and possible use of Bactrim . 2. Diarrhea- stool negative for C-diff 3. Acute pancreatitis. 4. Hypotension- patient received fluid boluses in ER. 5. Defibrillator/pacemaker-history of ischemic cardiomyopathy no evidence to suggest AICD discharge. 6. History of coronary artery disease 7. History of Proximal atrial fibrillation- continue Savaysa Plan I'm cardiology's perspective, we'll recommend to continue the patient on his current medications. No active issues from the heart perspective at this time. We will follow along with you now on an as-needed basis only, please don't hesitate to call if you have any questions at all. DNP note has been reviewed, I agree with a documented findings and plan of care. Patient was seen and examined.
--- NOTE | 2018-03-19 13:21 | P.PN ---
Subjective Progress Note Date: 03/19/18 This is an 82-year-old patient of Dr. Machado who presented to the ER today after having 3-4 days of diarrhea and myalgias. Patient states that about a week and a half ago he was getting treated with Bactrim for MRSA on his right ear by his primary care provider. Patient states he had 3 days left of the antibiotic but stopped due to the diarrhea. Patient states he has a significant history for coronary artery disease, hyperlipidemia, hypertension, and myocardial infarction. Patient also reports that he has a defibrillator and pacemaker. Patient is on the medication Savaysa, in which he states he takes for an arrhythmia that was diagnosed a year ago. Patient states that he is followed by cardiology, Dr. Hurst. Upon admission Bun was 45, Creatinine 1.90, potassium was 5.2, amylase 183 and lipase 784. Stool was negative for C. diff. Ultrasound of gallbladder was negative for gallstones or dilated ducts. KUB x-ray showed a nonacute abdomen. EKG on admission showed ventricular paced. Blood cultures have been ordered. Patient also reports that he feels his defibrillator has been discharging over the past couple days. Cardiac profile, troponins and EKG have been ordered. Patient also ordered for telemetry and admission to selective care. Cardiology has been consulted. Repeat lipase level 983. Orders placed for NPO. Patient denies chest pain or shortness of breath. 03/19/2018 patient is sitting up in bed. Patient states that he feels better than he did yesterday. Still having some diarrhea with minimum abdominal pain. GI service is consulted. Amyalase 192, lipase 999. CT of the abdomen, CA-19- 9. SHERYL/IgG4 subclass ordered per GI services. Denies chest pain or shortness of breath at this time Objective - Vital Signs Vital signs: Vital Signs Temp 98 F 03/19/18 11:45 Pulse 78 03/19/18 11:45 Resp 18 03/19/18 11:45 BP 100/56 03/19/18 11:45 Pulse Ox 94 L 03/19/18 11:45 Intake & Output 03/18/18 03/19/18 03/19/18 18:59 06:59 18:59 Output Total 300 Balance -300 Weight 88.451 kg Output: Urine 300 Other: # Voids 1 - Exam Head normocephalic Neck supple Lungs clear to auscultation bilaterally no wheezing or crackles Heart regular rate and rhythm S1-S2, no rub or gallop Abdomen is soft nontender nondistended positive bowel sounds no hepatosplenomegaly Extremities no edema Neuro alert and orientated to 3 - Labs CBC & Chem 7: 03/19/18 02:10 03/19/18 02:10 Labs: Abnormal Lab Results - Last 24 Hours (Table) 03/18/18 03/18/18 03/19/18 Range/Units 14:59 20:42 02:10 RBC 4.11 L (4.30-5.90) m/uL Hgb 12.3 L (13.0-17.5) gm/dL Hct 36.6 L (39.0-53.0) % Sodium (137-145) mmol/L Carbon Dioxide (22-30) mmol/L BUN (9-20) mg/dL Calcium (8.4-10.2) mg/dL AST (17-59) U/L Troponin I 0.052 H* (0.000-0.034) ng/mL Total Protein (6.3-8.2) g/dL Albumin (3.5-5.0) g/dL Triglycerides 181 H (<150) mg/dL Amylase (30-110) U/L Lipase (23-300) U/L 03/19/18 Range/Units 02:10 RBC (4.30-5.90) m/uL Hgb (13.0-17.5) gm/dL Hct (39.0-53.0) % Sodium 132 L (137-145) mmol/L Carbon Dioxide 19 L (22-30) mmol/L BUN 30 H (9-20) mg/dL Calcium 8.0 L (8.4-10.2) mg/dL AST 70 H (17-59) U/L Troponin I (0.000-0.034) ng/mL Total Protein 5.2 L (6.3-8.2) g/dL Albumin 2.8 L (3.5-5.0) g/dL Triglycerides (<150) mg/dL Amylase 192 H (30-110) U/L Lipase 999 H (23-300) U/L Microbiology - Last 24 Hours (Table) 03/17/18 19:33 Blood Culture - Preliminary Blood No Growth after 24 hours Assessment and Plan Assessment: 1. Acute kidney injury due to dehydration and possible use of Bactrim antibiotic. Patient received 1.5 L in ER and is currently on normal saline at 75. Potassium down to 4.9, BUN 30 and creatinine 1.20. 2. Diarrhea- stool negative for C-diff 3. Acute pancreatitis. GI service is following. Lipase level [address] of the abdomen and Labs ordered per GI. 4. Hypotension- patient received fluid boluses in ER. Home blood Pressure medication currently on hold. Parameters around Metroprolol have been ordered. 5. Defibrillator/pacemaker- cardiology service following. History of ischemiccardiomyopathy no evidence to suggest AICD discharge per cardiology. 6. History of coronary artery disease- continue Lipitor 7. History of Proximal atrial fibrillation- continue Savaysa 8. Right ear abscess- patient previously treated with Bactrim per Primary Care Provider. Patient states he stopped antibiotic 3 days early due to diarrhea. Blood Culture has been ordered. Patient having low grad temps 99.5. Patient started on vancomycin DVT prophylaxis Savaysa. GI prophylaxis Pepcid I performed an examination of the patient and discussed their management with the Nurse Practitioner. I have reviewed the Nurse Practitioner's notes and agree with the documented findings and plan of care
[2018-03-19 14:50] LABS: Troponin I 0.1 ng/mL (0.000-0.034)
--- NOTE | 2018-03-19 15:27 | CT ---
EXAMINATION TYPE: CT abdomen w con DATE OF EXAM: 03/19/2018 COMPARISON: NONE HISTORY: Patient poor historian. Pancreatitis. Rule out mass. CT DLP: 816.6 mGycm CONTRAST: CT scan of the abdomen is performed without Oral Contrast and with IV Contrast, patient injected with 80 mL of Isovue 370. FINDINGS: LUNG BASES-: Cardiomegaly with small basilar effusions and compressive atelectasis. Gynecomastia mosley ges. LIVER/GB: No calcified gallstones. No space occupying hepatic lesion. Biliary tree is of normal ca liber. PANCREAS: No inflammation. No distinct mass. SPLEEN: No splenic enlargement. No lesion seen. ADRENALS: No nodule. No thickening. KIDNEYS/BLADDER: No hydronephrosis. No nephrolithiasis. No distinct renal mass. Urinary bladder g rossly unremarkable. 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 Normal appendix. Normal bowel caliber. No inflammation. LYMPH NODES: No greater than 1cm abdominal or pelvic lymph nodes are appreciated. AORTA: Infrarenal abdominal aortic aneurysm measuring 3.6 cm. Extensive atheromatous change noted. 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 OTHER: No significant additional abnormality is seen. IMPRESSION: 1. No evidence of pancreatic mass or inflammatory process. 2. 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
[2018-03-19] MEDS: EDOXABAN TOSYLATE 30 MG TABLET PO SCH (20:25)
[2018-03-19] MEDS: ATORVASTATIN 10 MG TAB PO SCH (20:25)
[2018-03-20 01:16] LABS: Cancer Antigen 19-9 21.4 U/mL (0.0-34.9)
[2018-03-20 06:23] LABS: Basophils % (A) 0 %; Eosinophils # (A) 0.2 k/uL (0-0.7); Eosinophils % (A) 2 %; HCT 35.3 % (39.0-53.0); HGB 11.7 gm/dL (13.0-17.5); Lymphocytes # (A) 1.3 k/uL (1.0-4.8); Lymphocytes % (A) 14 %; MCH 29.6 pg (25.0-35.0); MCHC 33.2 g/dL (31.0-37.0); MCV 89.1 fL (80.0-100.0); Monocytes # (A) 0.7 k/uL (0-1.0); Monocytes % (A) 8 %; Neutrophils # (A) 6.3 k/uL (1.3-7.7); Neutrophils % (A) 72 %; Platelet Count 172 k/uL (150-450); RBC 3.97 m/uL (4.30-5.90); RDW 13.7 % (11.5-15.5); WBC 8.8 k/uL (3.8-10.6)
[2018-03-20 06:43] LABS: Albumin 2.7 g/dL (3.5-5.0); Calcium 8.2 mg/dL (8.4-10.2); Potassium 4.7 mmol/L (3.5-5.1); Total Bilirubin 0.9 mg/dL (0.2-1.3); Total Protein 5.4 g/dL (6.3-8.2)
[2018-03-20] MEDS: BEPREVE EYE BOTH EYES SCH (08:30)
[2018-03-20] MEDS: VANCOMYCIN 1,500 MG in SODIUM CHLORIDE 0.9% 250 ML IVPB SCH (08:34)
[2018-03-20] MEDS: FAMOTIDINE 20 MG TAB PO SCH (08:34)
[2018-03-20] MEDS: METOPROLOL SUCCINATE (ER) 50 MG TAB.ER.24H PO SCH (08:34)
[2018-03-20 08:57] LABS: Amylase 197 U/L (30-110); Lipase 908 U/L (23-300)
--- NOTE | 2018-03-20 10:26 | P.PN ---
Subjective Progress Note Date: 03/20/18 Principal diagnosis: Elevated amylase lipase Reevaluated for elevated amylase lipase without abdominal pain. CT abdomen also gallstonesoccupying hepatic lesions. Biliary tree normal caliber. Pancreas no inflammation or mass. SHERYL positive titer pending. Subclass 1-4 IgG pending. CA-19-9 21.4. Lipase 908. Amylase 197. Objective - Vital Signs Vital signs: Vital Signs Temp 98.7 F 03/20/18 04:15 Pulse 92 03/20/18 04:15 Resp 17 03/20/18 04:15 BP 189/87 03/20/18 04:15 Pulse Ox 96 03/20/18 04:15 Intake & Output 03/19/18 03/20/18 03/20/18 18:59 06:59 18:59 Intake Total 480 Output Total 800 Balance -320 Weight 89.3 kg Intake: Oral 480 Output: Urine 800 Other: Voiding Method Toilet # Voids 3 - Exam General appearance: The patient is alert, oriented, in no acute distress. HET: Head is normocephalic and atraumatic. Pupils are equal and reactive. Oropharynx is clear without lesions. Neck: Supple without lymphadenopathy. Trachea midline. Heart: S1 S2. Regular rate and rhythm. Lungs: No crackles or wheezes are heard. Abdomen: Soft, nontender, nondistended with bowel sounds. No peritoneal signs. No palpable organomegaly or masses. Extremities: Normal skin color and turgor. No cyanosis, rash, ulceration, clubbing, or edema. Radial and pedal pulses are 2/4 bilaterally. Neurological: No focal deficits. Strength and sensation are grossly intact. - Labs CBC & Chem 7: 03/20/18 06:02 03/20/18 06:02 Labs: Abnormal Lab Results - Last 24 Hours (Table) 03/19/18 03/19/18 03/20/18 Range/Units 02:10 02:10 06:02 RBC (4.30-5.90) m/uL Hgb (13.0-17.5) gm/dL Hct (39.0-53.0) % Sodium 130 L (137-145) mmol/L Carbon Dioxide 19 L (22-30) mmol/L BUN 24 H (9-20) mg/dL Calcium 8.2 L (8.4-10.2) mg/dL AST 64 H (17-59) U/L Troponin I 0.100 H* (0.000-0.034) ng/mL Total Protein 5.4 L (6.3-8.2) g/dL Albumin 2.7 L (3.5-5.0) g/dL Amylase (30-110) U/L Lipase (23-300) U/L SHERYL Screen POSITIVE H (NEGATIVE) 03/20/18 03/20/18 Range/Units 06:02 06:02 RBC 3.97 L (4.30-5.90) m/uL Hgb 11.7 L (13.0-17.5) gm/dL Hct 35.3 L (39.0-53.0) % Sodium (137-145) mmol/L Carbon Dioxide (22-30) mmol/L BUN (9-20) mg/dL Calcium (8.4-10.2) mg/dL AST (17-59) U/L Troponin I (0.000-0.034) ng/mL Total Protein (6.3-8.2) g/dL Albumin (3.5-5.0) g/dL Amylase 197 H (30-110) U/L Lipase 908 H (23-300) U/L SHERYL Screen (NEGATIVE) Microbiology - Last 24 Hours (Table) 03/17/18 19:33 Blood Culture - Preliminary Blood No Growth after 48 hours Assessment and Plan Assessment: Impression: 1. Acute dehydration acute kidney injury secondary to diarrhea suspect antibiotic related improved. 2. Elevated lipase amylase without abdominal pain atypical for pancreatitis but cannot be excluded. Positive SHERYL underlying autoimmune pancreatitis cannot be entirely excluded. CA-19-[address] abdomen reported no evidence of pancreatic abnormality or mass. Plan: 1. Discharge per medicine. Return to office in 2-3 weeks for reevaluation and discussion of possible outpatient endoscopic ultrasound. Repeat amylase lipase in 1 week in follow-up PCP is advised. 2. Diet as tolerated patient asymptomatic. 3. Daily amylase lipase not necessary as long as patient is asymptomatic. Assessment and plan a care discussed with Dr. Mallory
[2018-03-20 10:55] LABS: ANA Pattern Homogeneous; ANA Pattern 2 Nucleolar
--- NOTE | 2018-03-20 14:28 | P.DS ---
Providers Date of admission: 03/17/18 19:57 Expected date of discharge: 03/20/18 Attending physician: Jo Ann Ward Consults: 03/18/18 10:46 Consult Physician Routine Consulting Provider: Bozena Hurst Consult Reason/Comments: possible defiblator discharge Do you want consulting provider notified?: Yes 03/18/18 12:41 Consult Physician Routine Consulting Provider: Jono Hutchison Consult Reason/Comments: Acute Pancreatitis Do you want consulting provider notified?: Yes Primary care physician: Aleksandra Machado Hospital Course: Discharge Diagnosis 1. Acute kidney injury due to dehydration and possible use of Bactrim antibiotic. Patient received 1.5 L in ER and is currently on normal saline at 75. Potassium down to 4.9, BUN 24 and creatinine 1.10. Patient's Aldactone will be held at discharge. CMP orderd for out patient and to closely monitored by PCP 2. Diarrhea- stool negative for C-diff. Resolved 3. Acute pancreatitis. CT of abdomen completed showing no evidence of pancreatic mass or inflammatory process. Amykase and lipase ordered for 1 week and patient to follow up with GI service in 2-3 weeks for possible outpatient endoscopic ultrasound. 4. Hypotension- patient received fluid boluses in ER. Home blood Pressure medication currently on hold. Hydralazine and metoprolol resumed upon discharge. Imdur, Spironlactone and vasotec held due to Hypotension. Disscussed with Dr. Sneed per Cardiology 5. Defibrillator/pacemaker- cardiology service following. History of ischemiccardiomyopathy no evidence to suggest AICD discharge per cardiology. Patient to follow outpatient with cardiology 6. History of coronary artery disease- continue Lipitor 7. History of Proximal atrial fibrillation- continue Savaysa 8. Right ear abscess- patient previously treated with Bactrim per Primary Care Provider. Patient states he stopped antibiotic 3 days early due to diarrhea. Blood Culture negative. Patient received Vancomycin during hospital stay but will not require outpatient antibiotics. Will send prescription for antibacterial ointment to be applied to site. Hospital Course: This is an 82-year-old patient of Dr. Machado who presented to the ER today after having 3-4 days of diarrhea and myalgias. Patient states that about a week and a half ago he was getting treated with Bactrim for MRSA on his right ear by his primary care provider. Patient states he had 3 days left of the antibiotic but stopped due to the diarrhea. Patient states he has a significant history for coronary artery disease, hyperlipidemia, hypertension, and myocardial infarction. Patient also reports that he has a defibrillator and pacemaker. Patient is on the medication Savaysa, in which he states he takes for an arrhythmia that was diagnosed a year ago. Patient states that he is followed by cardiology, Dr. Hurst. Upon admission Bun was 45, Creatinine 1.90, potassium was 5.2, amylase 183 and lipase 784. Stool was negative for C. diff. Ultrasound of gallbladder was negative for gallstones or dilated ducts. KUB x-ray showed a nonacute abdomen. EKG on admission showed ventricular paced. Blood cultures have been ordered. Patient also reports that he feels his defibrillator has been discharging over the past couple days. Cardiac profile, troponins and EKG have been ordered. Patient also ordered for telemetry and admission to [facility]. Cardiology has been consulted. Repeat lipase level 983. Orders placed for NPO. Patient denies chest pain or shortness of breath. 03/19/2018 patient is sitting up in bed. Patient states that he feels better than he did yesterday. Still having some diarrhea with minimum abdominal pain. GI service is consulted. Amyalase 192, lipase 999. CT of the abdomen, CA-19- 9. SHERYL/IgG4 subclass ordered per GI services. Denies chest pain or shortness of breath at this time Discussed case with GI and Cardiology services. CT of abdomen completed showing no evidence of pancreatic mass or inflammatory process. Patient to follow up with GI services outpatient for further work up if Amylase and Lipase remain elevated. Cardiology and GI services cleared patient for discharge. Patient Condition at Discharge: Stable Plan - Discharge Summary Discharge Rx Participant: No New Discharge Prescriptions: Continue Edoxaban Tosylate [Savaysa] 30 mg PO HS hydrALAZINE HCL [Apresoline] 50 mg PO BID Simvastatin [Zocor] 20 mg PO HS Metoprolol Succinate (ER) [Toprol XL] 50 mg PO BID Bepreve Eye Drops 1 drop BOTH EYES DAILY Discontinued Spironolactone-Hctz 25-25Mg [Aldactazide 25-25Mg] 0.5 tab PO DAILY Isosorbide Mononitrate ER [Imdur] 30 mg PO DAILY Enalapril [Vasotec] 20 mg PO BID Discharge Medication List Bepreve Eye Drops 1 drop BOTH EYES DAILY 03/07/18 [History] Edoxaban Tosylate [Savaysa] 30 mg PO HS 03/07/18 [History] Metoprolol Succinate (ER) [Toprol XL] 50 mg PO BID 03/07/18 [History] Simvastatin [Zocor] 20 mg PO HS 03/07/18 [History] hydrALAZINE HCL [Apresoline] 50 mg PO BID 03/07/18 [History] Follow up Appointment(s)/Referral(s): Bozena Hurst MD [STAFF PHYSICIAN] - 1 Week Aleksandra Machado MD [Primary Care Provider] - 1-2 days Isidra Mallory MD [STAFF PHYSICIAN] - 2 Weeks Ambulatory/Diagnostic Orders: Amylase [LAB.AMB] Time Frame: 1 Week, Location: None Selected Comprehensive Metabolic Panel [LAB.AMB] Time Frame: 2 Days, Location: None Selected Lipase [LAB.AMB] Time Frame: 1 Week, Location: None Selected
[2018-03-20 14:56] VITALS: BP 106/64; PULSE 94; RESP 16; TEMP 97.8
[2018-03-20] MEDS ORDERED: hydrALAZINE HCL 50 MG TAB PO SCH (21:00)
[2018-03-21] MEDS ORDERED: VANCOMYCIN TROUGH DUE 1 EACH MISC MISCELLANE ONE (08:00)
== END 2018-03-20 16:32 | disposition home or self-care (01) | DRG 682 ==
LOC: EC 14:32 → 4MS4W 19:57 → 5MS5E 03-18 10:49 → 6SEL 03-18 11:08
PROVIDERS: ADMIT Internal Medicine; ATTEND Internal Medicine
DX: N17.9 Acute kidney failure, unspecified (principal); K85.90 Acute pancreatitis without necrosis or infection, unspecified; E86.0 Dehydration; E78.5 Hyperlipidemia, unspecified; I11.0 Hypertensive heart disease with heart failure; I25.10 Atherosclerotic heart disease of native coronary artery without angina pectoris; I95.9 Hypotension, unspecified; H66.41 Suppurative otitis media, unspecified, right ear; I25.5 Ischemic cardiomyopathy; I50.9 Heart failure, unspecified; I48.0 Paroxysmal atrial fibrillation; R19.7 Diarrhea, unspecified; R74.8 Abnormal levels of other serum enzymes; I25.2 Old myocardial infarction; Z86.14 Personal history of Methicillin resistant Staphylococcus aureus infection; Z82.49 Family history of ischemic heart disease and other diseases of the circulatory system; Z86.73 Personal history of transient ischemic attack (TIA), and cerebral infarction without residual deficits; Z95.810 Presence of automatic (implantable) cardiac defibrillator; Z79.899 Other long term (current) drug therapy
CPT/HCPCS: 36415; 74018; 74160; 76705; 80053; 81003; 82150; 82550; 82553; 82787; 83690; 83735; 84478; 84484; 85025; 86038; 86039; 86301; 87040; 87324; 93005; 96360; 96361; 99285

== ENCOUNTER 2020-03-10 06:20 | Day surgery (SDC) | payer MEDICARE ==
[2020-03-09 11:13] VITALS: BMI 27.9
[~2020-03-10 06:20] MED LIST: LACTATED RINGERS 1,000 ML IV SCH; SODIUM CHLORIDE 0.9% 1,000 ML IV SCH; ceFAZolin 1,000 MG in SODIUM CHLORIDE 0.9% IRRIGATIO 250 ML IRRIGATION ONE
[2020-03-10 07:01] LABS: Basophils % (A) 0 %; Eosinophils # (A) 0.2 k/uL (0-0.7); Eosinophils % (A) 2 %; HCT 43.5 % (39.0-53.0); Lymphocytes # (A) 1.3 k/uL (1.0-4.8); Lymphocytes % (A) 17 %; MCH 29.7 pg (25.0-35.0); MCHC 32.3 g/dL (31.0-37.0); Mean Platelet Volume 8.4; Monocytes # (A) 0.9 k/uL (0-1.0); Monocytes % (A) 12 %; Neutrophils % (A) 66 %; Platelet Count 221 k/uL (150-450); RBC 4.73 m/uL (4.30-5.90); RDW 13.2 % (11.5-15.5); WBC 7.6 k/uL (3.8-10.6)
[2020-03-10 07:14] LABS: Calcium 9.3 mg/dL (8.4-10.2); Potassium 4.8 mmol/L (3.5-5.1)
[2020-03-10] MEDS ORDERED: SODIUM CHLORIDE 0.9% 1,000 ML IV ONE (07:16)
[2020-03-10 07:19] VITALS: RESP 16; TEMP 98.2
[2020-03-10] MEDS ORDERED: PROPOFOL 10 MG/ML 20 ML VIAL IV ONE (07:20)
[2020-03-10] MEDS ORDERED: MIDAZOLAM 2 MG/2 ML VIAL ONE (07:20)
[2020-03-10] MEDS ORDERED: fentaNYL (PF) 50 MCG/ML 2 ML AMP ONE (07:20)
[2020-03-10] MEDS ORDERED: KETAMINE 10 MG/ML 20 ML VIAL ONE (07:20)
[2020-03-10] MEDS ORDERED: LIDOCAINE 1% INJ 10MG/ML (20 ML MDV) ONE ×2 (07:45)
[2020-03-10] MEDS ORDERED: LIDOCAINE 1% INJ 10MG/ML (20 ML MDV) SQ ONE (07:54)
[2020-03-10] MEDS ORDERED: ACETAMINOPHEN TAB 325 MG TAB PO PRN (08:46)
[2020-03-10] MEDS ORDERED: ACETAMINOPHEN IV (For NPO) 1,000 MG in EMPTY BAG 1 BAG IVPB ONE (10:00)
[2020-03-10 10:09] VITALS: PULSE 60
[2020-03-10 13:46] VITALS: BP 123/68
--- NOTE | 2020-03-10 17:03 | PCN ---
PROCEDURE NOTE Mr. Perdue has a biventricular ICD for congestive heart failure and chronic systolic heart failure. A biventricular ICD was implanted many years back and he is brought in for biventricular ICD generator change. His device is at [facility]. His ejection fraction with biventricular pacing is 45%. The patient was brought to the EP lab in a fasting state. Written informed consent was obtained prior to the procedure. Standard fluoroscopy of the leads was performed. He has a Riata lead which is on advisory. No externalization noted. The left pectoral area was prepped and draped as per protocol. 1% lidocaine was used for local anesthesia. A 4 cm incision was made directly over the previous surgical site and carried down to the level of the generator. The generator was explanted. Partial capsulectomy was performed. Hemostasis was assured. The old generator was explanted. The new generator was implanted. The leads were interrogated, and following that DFT testing was performed. P-waves were 0.4 mV, pacing impedance 450 ohms. The R-waves were 11.6 mV, pacing impedance 510 ohms. Pacing threshold 0.75 V at 0.5 milliseconds. The LV pacing impedance was 950 ohms. The pacing threshold was 1.5 V at 1 millisecond. The old generator was explanted and a new generator was implanted. This was a [employer] [id number], serial #[id number]. The lead and the generator were then placed in the subfascial pocket. The wound was closed in 3 layers and dressed per protocol. DFT testing was performed under anesthesia. The DC fibber was used to induce ventricular fibrillation. This was adequately and appropriately detected at least sensitivity and successfully internally defibrillated with a 10-joule shock in a amira configuration. The charge time was 1.5 seconds, shock impedance 445 ohms. No post- shock noise. The device was then programmed according to the MADIT-RIT programming with biventricular pacing turned on. RESULTS: Successful biventricular ICD generator change for chronic systolic heart failure with improvement in LV systolic function at 45% during biventricular pacing. PLAN: Continue heart failure medications and follow up in the device clinic in a week and follow up with Dr. Hurst as before. MMODL / IJN: [id number] /
== END 2020-03-10 15:00 | disposition home or self-care (01) ==
LOC: CATHEP 06:20
PROVIDERS: ATTEND Internal Medicine Clinical Cardiac Electrophysiology
DX: Z45.02 Encounter for adjustment and management of automatic implantable cardiac defibrillator (principal); I11.0 Hypertensive heart disease with heart failure; I50.22 Chronic systolic (congestive) heart failure; E78.2 Mixed hyperlipidemia; I48.19 Other persistent atrial fibrillation; Z82.49 Family history of ischemic heart disease and other diseases of the circulatory system; Z88.0 Allergy status to penicillin; I25.5 Ischemic cardiomyopathy; M19.90 Unspecified osteoarthritis, unspecified site; Z87.891 Personal history of nicotine dependence; Z79.02 Long term (current) use of antithrombotics/antiplatelets; Z79.899 Other long term (current) drug therapy
CPT/HCPCS: 93641; 33264; 80048; 85025; C1882; J0690 ×2; J2001; J0131